=== PATIENT | male | born 1980 | race Caucasian/White ===

== ENCOUNTER 2020-02-25 19:57 | Emergency (ER) | payer BC, OTHER ==
[2020-02-25 20:03] VITALS: TEMP 97.8
[2020-02-25] MEDS ORDERED: SODIUM CHLORIDE 0.9% 500 ML 500 ML IV STA (20:24)
[2020-02-25] MEDS ORDERED: ONDANSETRON 4 MG/2 ML VIAL IVP STA (20:24)
[2020-02-25] MEDS ORDERED: KETOROLAC 15 MG/ML 1 ML VIAL IVP STA ×2 (20:24→20:59)
[2020-02-25 20:42] LABS: Appearance,Urine Clear (Clear); Bilirubin,Urine Negative (Negative); Blood,Urine Negative (Negative); Color,Urine Yellow; Glucose,Urine (UA) Negative (Negative); Ketones,Urine Negative (Negative); Leukocyte Esterase,Urine Negative (Negative); Nitrite,Urine Negative (Negative); PH, Urine 5.5 (5.0-8.0); Protein,Urine Negative (Negative); Specific Gravity,Urine 1.024 (1.001-1.035); Urobilinogen,Urine <2.0 mg/dL (<2.0)
[2020-02-25 20:49] LABS: Basophils # (A) 0.1 k/uL (0-0.2); Basophils % (A) 1 %; Eosinophils # (A) 0.1 k/uL (0-0.7); Eosinophils % (A) 1 %; HCT 40.2 % (39.0-53.0); HGB 13.9 gm/dL (13.0-17.5); Lymphocytes # (A) 2.7 k/uL (1.0-4.8); Lymphocytes % (A) 25 %; MCH 28.6 pg (25.0-35.0); MCHC 34.6 g/dL (31.0-37.0); MCV 82.7 fL (80.0-100.0); Mean Platelet Volume 7.3; Monocytes # (A) 0.7 k/uL (0-1.0); Monocytes % (A) 6 %; Neutrophils # (A) 7.1 k/uL (1.3-7.7); Neutrophils % (A) 65 %; Platelet Count 209 k/uL (150-450); RBC 4.86 m/uL (4.30-5.90); RDW 13.1 % (11.5-15.5); WBC 10.8 k/uL (3.8-10.6)
[2020-02-25 20:53] LABS: ALT 41 U/L (4-49); AST 36 U/L (17-59); African American GFR (CKD) >90 (>60 ml/min/1.73 sqM); Albumin 4.6 g/dL (3.5-5.0); Alkaline Phosphatase 73 U/L (38-126); Anion Gap 8 mmol/L; Blood Urea Nitrogen 12 mg/dL (9-20); Calcium 9.4 mg/dL (8.4-10.2); Carbon Dioxide 26 mmol/L (22-30); Chloride 105 mmol/L (98-107); Glucose 102 mg/dL (74-99); Non-African American GFR(CKD) >90 (>60 ml/min/1.73 sqM); Potassium 3.7 mmol/L (3.5-5.1); Sodium 139 mmol/L (137-145); Total Bilirubin 0.5 mg/dL (0.2-1.3); Total Protein 7.8 g/dL (6.3-8.2)
--- NOTE | 2020-02-25 21:51 | CT ---
EXAMINATION TYPE: CT abdomen pelvis wo con DATE OF EXAM: 02/25/2020 COMPARISON: None HISTORY: pain for 2 days possible kidney stones CT DLP: 630 mGycm Automated exposure control for dose reduction was used. Images obtained from the diaphragm to the floor the pelvis without contrast. The lung bases are clear. There is no pleural effusion. There is no pericardial effusion. Heart size is normal. Liver and gallbladder appear normal. Bile ducts are not dilated. Spleen is intact. There is 1 cm calc ified splenic granuloma. There is no pancreatic mass. There is no adrenal mass. Kidneys show normal size and contour. There is no hydronephrosis. The urete rs are not dilated. There is no retroperitoneal adenopathy. Appendix is posterior and appears normal. Bladder distends smoothly. There is no inguinal hernia. There is no free fluid in the pelvis. There is no sign of a pelvic mass. There is 2 mm calculus upper pole right kidney. Lumbar vertebra have normal spacing and alignment. Posterior elements are intact. Bony pelvis is inta ct. Hip joints are intact. There is no mesenteric edema. There is no ascites or free air. There is no bowel obstruction. Intestinal pattern appears normal. IMPRESSION: Nonobstructing right renal calculus. Normal appendix. No evidence of renal obstruction.
--- NOTE | 2020-02-25 22:16 | ED ---
Abdominal Pain HPI - General Chief Complaint: Abdominal Pain Stated Complaint: Flank Pain Time Seen by Provider: 02/25/20 20:06 Source: patient Mode of arrival: ambulatory Limitations: no limitations - History of Present Illness Initial Comments: Patient is a 40-year-old male presenting to emergency Department with complaints of left-sided abdominal pain that has been increasing since yesterday. He states he has been having some intermittent nausea as well. He denies history of kidney stones. He denies any vomiting, diarrhea, urinary symptoms. He describes the pain as starting at his left flank and extending around to the left side of his abdomen. He denies history of abdominal surgeries. He's been having regular bowel movements. Denies any fever, chills, chest pain, shortness of breath. He has no further complaints. Upon arrival to the ER, his vital signs are stable. - Related Data Home Medications Medication Instructions Recorded Confirmed ALPRAZolam [Xanax] 0.5 mg PO BID PRN 02/25/20 02/25/20 Citalopram Hydrobromide [CeleXA] See Taper PO DAILY 02/25/20 02/25/20 Multivitamins, Thera [Multivitamin 1 tab PO DAILY 02/25/20 02/25/20 (formulary)] Telmisartan 80 mg PO DAILY 02/25/20 02/25/20 Turmeric(Unknown Dose) 1 tab PO DAILY 02/25/20 02/25/20 Vitamin B-12(Unknown Dose) 1 tab PO DAILY 02/25/20 02/25/20 Vitamin C(Unknown Dose) 1 tab PO DAILY 02/25/20 02/25/20 Vitamin D3(Unknown Dose) 1 tab PO DAILY 02/25/20 02/25/20 Allergies Allergy/AdvReac Type Severity Reaction Status Date / Time No Known Allergies Allergy Verified 02/25/20 21:19 Review of Systems ROS Statement: Those systems with pertinent positive or pertinent negative responses have been documented in the HPI. ROS Other: All systems not noted in ROS Statement are negative. Past Medical History Past Medical History: Hypertension Additional Past Medical History / Comment(s): hemorhoids History of Any Multi-Drug Resistant Organisms: None Reported Past Surgical History: No Surgical Hx Reported Past Psychological History: Anxiety, Depression Smoking Status: Vaper Past Alcohol Use History: Rare Past Drug Use History: None Reported General Exam - General Exam Comments Initial Comments: GENERAL: Patient is well-developed and well-nourished. Patient is nontoxic and in no acute distress. HEAD: Atraumatic, normocephalic. EYES: Pupils equal round and reactive to light, extraocular movements intact, sclera anicteric, conjunctiva are normal. Eyelids were unremarkable. ENT: TMs normal, nares patent, oropharynx clear without exudates. Moist mucous membranes. NECK: Normal range of motion, supple without lymphadenopathy or JVD. LUNGS: Unlabored respirations. Breath sounds clear to auscultation bilaterally and equal. No wheezes rales or rhonchi. HEART: Regular rate and rhythm without murmurs, rubs or gallops. ABDOMEN: Very mild tenderness to the left side of the abdomen, no flank tenderness. Soft, normoactive bowel sounds. No guarding, no rebound. No masses appreciated. : Deferred MUSCULOSKELETAL: Normal extremities with adequate strength and normal range of motion, no pitting or edema. No clubbing or cyanosis. NEUROLOGICAL: Patient is alert and oriented x 3. Motor and sensory are also intact. Normal speech, normal gait. PSYCH: Normal mood, normal affect. SKIN: Warm, Dry, normal turgor, no rashes or lesions noted. Limitations: no limitations Course Vital Signs 02/25/20 20:01 Temperature 97.8 F Pulse Rate 85 Respiratory 18 Rate Blood Pressure 161/101 O2 Sat by Pulse 98 Oximetry Medical Decision Making - Medical Decision Making Patient is a 40-year-old male here for left sided abdominal pain started yesterday. His vitals are stable, afebrile. Has some very mild tenderness palpation of left side of the abdomen, no flank tenderness. Patient's labs show no acute abnormalities, lactic acid is normal, lipase is normal, urine shows no evidence of infection or hematuria. CT of the abdomen shows a 2 mm calculus in the right kidney but none in the left, there is a 1 cm calcified splenic granuloma. No other acute findings. I did discuss these findings with the p atient. He received some fluids and Toradol and does report improvement of symptoms. I discussed with patient's symptoms could be related to muscle skeletal injury, gas pains, mild colitis. I recommended increasing water intake, may continue Tylenol or Motrin for discomfort. I will give patient an GI follow-up. He is in agreement with this plan of care and he is stable for discharge. Return parameters were discussed with the patient and he verbalized understanding. Case discussed with Dr. Cowan. - Lab Data Result diagrams: 02/25/20 20:24 02/25/20 20:24 Lab Results 02/25/20 02/25/20 02/25/20 Range/Units 20:24 20:24 20:24 WBC 10.8 H (3.8-10.6) k/uL RBC 4.86 (4.30-5.90) m/uL Hgb 13.9 (13.0-17.5) gm/dL Hct 40.2 (39.0-53.0) % MCV 82.7 (80.0-100.0) fL MCH 28.6 (25.0-35.0) pg MCHC 34.6 (31.0-37.0) g/dL RDW 13.1 (11.5-15.5) % Plt Count 209 (150-450) k/uL Neutrophils % 65 % Lymphocytes % 25 % Monocytes % 6 % Eosinophils % 1 % Basophils % 1 % Neutrophils # 7.1 (1.3-7.7) k/uL Lymphocytes # 2.7 (1.0-4.8) k/uL Monocytes # 0.7 (0-1.0) k/uL Eosinophils # 0.1 (0-0.7) k/uL Basophils # 0.1 (0-0.2) k/uL Sodium 139 (137-145) mmol/L Potassium 3.7 (3.5-5.1) mmol/L Chloride 105 (98-107) mmol/L Carbon Dioxide 26 (22-30) mmol/L Anion Gap 8 mmol/L BUN 12 (9-20) mg/dL Creatinine 0.99 (0.66-1.25) mg/dL Est GFR (CKD-EPI)AfAm >90 (>60 ml/min/1.73 sqM) Est GFR (CKD-EPI)NonAf >90 (>60 ml/min/1.73 sqM) Glucose 102 H (74-99) mg/dL Plasma Lactic Acid Asim (0.7-2.0) mmol/L Calcium 9.4 (8.4-10.2) mg/dL Total Bilirubin 0.5 (0.2-1.3) mg/dL AST 36 (17-59) U/L ALT 41 (4-49) U/L Alkaline Phosphatase 73 (38-126) U/L Total Protein 7.8 (6.3-8.2) g/dL Albumin 4.6 (3.5-5.0) g/dL Lipase 100 (23-300) U/L Urine Color Yellow Urine Appearance Clear (Clear) Urine pH 5.5 (5.0-8.0) Ur Specific [place] 1.024 (1.001-1.035) Urine Protein Negative (Negative) Urine Glucose (UA) Negative (Negative) Urine Ketones Negative (Negative) Urine Blood Negative (Negative) Urine Nitrite Negative (Negative) Urine Bilirubin Negative (Negative) Urine Urobilinogen <2.0 (<2.0) mg/dL Ur Leukocyte Esterase Negative (Negative) 02/25/20 Range/Units 20:25 WBC (3.8-10.6) k/uL RBC (4.30-5.90) m/uL Hgb (13.0-17.5) gm/dL Hct (39.0-53.0) % MCV (80.0-100.0) fL MCH (25.0-35.0) pg MCHC (31.0-37.0) g/dL RDW (11.5-15.5) % Plt Count (150-450) k/uL Neutrophils % % Lymphocytes % % Monocytes % % Eosinophils % % Basophils % % Neutrophils # (1.3-7.7) k/uL Lymphocytes # (1.0-4.8) k/uL Monocytes # (0-1.0) k/uL Eosinophils # (0-0.7) k/uL Basophils # (0-0.2) k/uL Sodium (137-145) mmol/L Potassium (3.5-5.1) mmol/L Chloride (98-107) mmol/L Carbon Dioxide (22-30) mmol/L Anion Gap mmol/L BUN (9-20) mg/dL Creatinine (0.66-1.25) mg/dL Est GFR (CKD-EPI)AfAm (>60 ml/min/1.73 sqM) Est GFR (CKD-EPI)NonAf (>60 ml/min/1.73 sqM) Glucose (74-99) mg/dL Plasma Lactic Acid Asim 0.6 L (0.7-2.0) mmol/L Calcium (8.4-10.2) mg/dL Total Bilirubin (0.2-1.3) mg/dL AST (17-59) U/L ALT (4-49) U/L Alkaline Phosphatase (38-126) U/L Total Protein (6.3-8.2) g/dL Albumin (3.5-5.0) g/dL Lipase (23-300) U/L Urine Color Urine Appearance (Clear) Urine pH (5.0-8.0) Ur Specific [place] (1.001-1.035) Urine Protein (Negative) Urine Glucose (UA) (Negative) Urine Ketones (Negative) Urine Blood (Negative) Urine Nitrite (Negative) Urine Bilirubin (Negative) Urine Urobilinogen (<2.0) mg/dL Ur Leukocyte Esterase (Negative) Disposition Clinical Impression: Abdominal pain Disposition: HOME SELF-CARE Condition: Stable Instructions (If sedation given, give patient instructions): Abdominal Pain (ED) Additional Instructions: Please return to the Emergency Department if symptoms worsen or any other concerns. Continue to increase fluid intake. May take ibuprofen or Tylenol for discomfort. Follow up with PCP and/or GI specialist this as discussed. Is patient prescribed a controlled substance at d/c from ED?: No Referrals: Alec Rosales MD [Primary Care Provider] - 1-2 days Marina Brown MD [STAFF PHYSICIAN] - 1-2 days
[2020-02-25 22:28] VITALS: BP 157/105; PULSE 63; RESP 16
== END 2020-02-25 22:28 | disposition home or self-care (01) ==
LOC: EC 19:57
DX: R10.9 Unspecified abdominal pain (principal); N20.0 Calculus of kidney; D73.89 Other diseases of spleen; I10 Essential (primary) hypertension; F41.9 Anxiety disorder, unspecified; F32.9 Major depressive disorder, single episode, unspecified; F17.290 Nicotine dependence, other tobacco product, uncomplicated; Z79.899 Other long term (current) drug therapy
CPT/HCPCS: 36415; 80053; 83605; 83690; 85025; 81003; 74176; 99284; 96374; 96375; 96376; J2405; J1885

== ENCOUNTER → 2022-06-07 | Outpatient (CLI) | payer BC ==
--- NOTE | 2022-06-07 09:55 | CT ---
EXAMINATION TYPE: CT sinus wo con CT DLP: 622.30 mGycm, Automated exposure control for dose reduction was used. DATE OF EXAM: 06/07/2022 9:43 AM COMPARISON: None. CLINICAL INDICATION:Male, 42 years old with history of J32.9 CHRONIC SINUSITIS CONTRAST: None. TECHNIQUE: Multiple thin axial images were obtained through the paranasal sinuses without the use of IV contrast. Additional coronal and sagittal reformatted images were submitted for evaluation. FINDINGS: Frontal sinuses: Normally developed. Moderate left and mild right mucosal thickening. Frontal Recess: Opacified. Maxillary Sinuses: Normally developed. Moderate mucosal thickening of the bilateral maxillary sinuses with thinning of the posterior vickers. Maxillary Infundibula([facility]): Completely opacified bilaterally, No Louie cells identified. Ethmoid sinuses: Normally developed. Moderate to severe mucosal thickening. Ethmoidal notch: Protecte d and abutting the lateral lamina. Sphenoid sinuses: Normally developed. Mild to moderate mucosal thickening bilaterally. There is sella r sphenoid sinus pneumatization without evidence of dehiscence. No dehiscence of carotid canal. No e vidence of optic nerve dehiscence within the sphenoid sinus. Sphenoethmoidal recesses: Opacified. Nasal septum: Moderately deviated to the left.. Nasal Turbinates: Within normal limits. Mastoid air cells & middle ears: The air cells are clear. The middle ears are grossly unremarkable. Modified Soft tissues & Brain: Partially seen without gross abnormality. Globes are intact. Other: Cribriform plate demonstrates symmetric Keros classification type 2 cribriform plate. No evidence of bony dehiscence of skull base. Lamina papyracea is intact without evidence of remote orbital fracture or orbital prolapse into the e thmoid sinus. IMPRESSION: Moderate paranasal chronic sinus disease with opacification of the bilateral ostiomeatal complexes.
== END | disposition home or self-care (01) ==
LOC: RADCTMAIN 09:28
PROVIDERS: ATTEND Otolaryngology
DX: J32.9 Chronic sinusitis, unspecified (principal); J32.8 Other chronic sinusitis; J34.89 Other specified disorders of nose and nasal sinuses
CPT/HCPCS: 70486

== ENCOUNTER 2022-08-25 09:28 | Day surgery (SDC) | payer BC ==
[~2022-08-25 09:28] MED LIST: DEXAMETHASONE SOD PHOSPHATE 4 MG/ML 1 ML VIAL IV ONE; DEXAMETHASONE SOD PHOSPHATE 4 MG/ML 1 ML VIAL IV PRN; FAMOTIDINE 20 MG/2 ML VIAL IV PRN; LACTATED RINGERS 1,000 ML IV SCH; LIDOCAINE 1% (10MG/ML) FOR IV START INTRADERMA PRN; MIDAZOLAM 2 MG/2 ML VIAL IV PRN; ONDANSETRON 4 MG/2 ML VIAL IVP ONE; ONDANSETRON 4 MG/2 ML VIAL IVP PRN; OXYMETAZOLINE 0.05% NASL SPRAY 1 SPRAY BOTTLE EA NOSTRIL PRN
[2022-08-25] MEDS ORDERED: HYDROCORTISONE SUCCINATE 100 MG/2 ML VIAL IV ONE (10:23)
[2022-08-25] MEDS ORDERED: ROCURONIUM 10 MG/ML (5 ML VIAL) IV ONE (10:49)
[2022-08-25] MEDS ORDERED: fentaNYL (PF) 50 MCG/ML 2 ML AMP ONE (10:49)
[2022-08-25] MEDS ORDERED: MIDAZOLAM 2 MG/2 ML VIAL ONE (10:49)
[2022-08-25] MEDS ORDERED: SUCCINYLCHOLINE CHLORIDE 200 MG/10 ML VIAL IV ONE (10:49)
[2022-08-25] MEDS ORDERED: KETOROLAC 15 MG/ML 1 ML VIAL ONE (10:49)
[2022-08-25] MEDS ORDERED: diphenhydrAMINE 50 MG/ML 1 ML VIAL ONE (10:49)
[2022-08-25] MEDS ORDERED: PROPOFOL 10 MG/ML 20 ML VIAL IV ONE (10:49)
[2022-08-25] MEDS ORDERED: LIDOCAINE 2%-EPI 1:100,000 20 ML VIAL SUBMUCOSAL ONE (11:05)
--- NOTE | 2022-08-25 12:14 | P.OP ---
Date of Procedure: 08/25/22 Preoperative Diagnosis: Deviated nasal septum Inferior turbinate hypertrophy Chronic sinusitis Postoperative Diagnosis: Same Procedure(s) Performed: Septoplasty Outfracture and submucous resection of the inferior turbinates Bilateral endoscopic sinus surgery including bilateral maxillary antrostomy with removal of tissue from maxillary sinuses, bilateral anterior and posterior ethmoidectomy with sphenoidotomy and removal of tissue from the sphenoid sin uses, bilateral frontal sinusotomy with removal of tissue from the frontal sinuses and exploration of all sinuses Anesthesia: RADHAMES Surgeon: Amauri Almonte Estimated Blood Loss (ml): 25 Pathology: other (Nasal septal bone and cartilage and sinus contents) Condition: stable Disposition: PACU Indications for Procedure: Is a 43-year-old white male whose had difficulties with chronic nasal airway obstruction congestion recurrent and chronic sinusitis with CT evidence of chronic pansinusitis Operative Findings: Nasal septum deviated the right with inferior turbinate hypertrophy bilateral. Mucosal thickening throughout the maxillary ethmoid frontal and sphenoid sinuses- diffuse small polyps throughout the ethmoid air cells Description of Procedure: The patient was brought into the operative suite and placed in a supine position. The patient underwent induction of general anesthesia with oral endotracheal intubation without difficulty. The patient was prepped and draped in the usual aseptic fashion with the orbits in the operating field for monitoring to the case and the computed tomography scan was on the computer screen for review throughout the case. 1% lidocaine with 1 :100,000 epinephrine was infused submucosally into both sides of the nasal septum as well as the lateral nasal wall and anterior tips of the middle turbinates. While this was taking vasoconstrictive effect the inferior turbinates were infractured with [place] elevator and partial submucous resection of the inferior turbinates was performed with a portion of the submucosal soft tissue and the inferior turbinate bone removed with Coblation device. The inferior turbinates were then outfractured with the [place] elevator. A left hemitransfixion incision was then made with the mucoperichondrial and mucoperiosteal flap on the left elevated. The bony cartilaginous junction was disarticulated and the mucoperiosteal flap on the right was elevated. Bony nasal septal deformities were removed with Flaco forceps and an inferior cartilaginous strip was removed leaving a full 1.5 cm caudal strut. Checking intranasally this corrected the nasoseptal deformities and the hemitransfixion incision was closed with a running 4-0 chromic suture. Full 0 endoscopic examination is performed bilaterally. Beginning on the left, the middle turbinate was medialized. The maxillary ostium was located with a ballpoint probe and an infundibulotomy was performed followed by uncinectomy. The maxillary antrostomy was enlarged at the expense of the anterior and posterior fontanelle taking care anteriorly not to injure the lacrimal bone. The maxillary sinus was evaluated with 30 and 70 endoscope .[Abnormal appearing tissue was removed from the maxillary sinus]. Anterior and posterior ethmoidectomy were then performed from anterior to posterior to the level of the skull base. The roof of the anterior ethmoid air cells were then cleaned from posterior to anterior using up-biting Blakesley forceps. The frontal sinus was opened under 30 endoscopic visualization with curved suction and giraffe forceps and then explored The frontal sinus was then explored with 30 endoscope.[Abnormal tissue was removed from the frontal sinus]. The sphenoid sinus was opened with straight suction and straight Blakesley forceps and explored The sphenoid sinus was then explored with 0 endosco pe.[Abnormal tissue was removed from the sphenoid sinus]. Attention was then turned to the right where the procedures were followed as they had been on the left including medialization middle turbinate infundibulotomy uncinectomy max antrostomy with removal of tissue from maxillary sinus anterior posterior ethmoidectomy sphenoidotomy with exploration and removal of tissue and frontal sinusotomy with exploration and removal. [Nasopore nasal dressing was placed in the middle meatus bilaterally under direct visualization]. Bilateral Rodriguez airway splints coated with bacitracin ointment were placed and sutured transseptally with a 4-0 nylon suture. The patient was suctioned in oral gastric fashion and was allowed to emerge from general anesthesia having tolerated procedure well and was extubated in the operating suite and transferred to the postoperative recovery area in satisfactory condition.
[2022-08-25] MEDS: HYDROmorphone 0.5 MG/0.5 ML SYRINGE IVP PRN ×3 (12:54→13:01)
[2022-08-25] MEDS ORDERED: hydrALAZINE HCL 20 MG/ML 1 ML VIAL IVP ONE (13:10)
[2022-08-25 13:13] VITALS: TEMP 98.1
[2022-08-25 13:36] VITALS: RESP 16
[2022-08-25 14:22] VITALS: BP 156/89; PULSE 74
== END 2022-08-25 14:39 | disposition home or self-care (01) ==
LOC: OR 09:28
PROVIDERS: ATTEND Otolaryngology
DX: J34.2 Deviated nasal septum (principal); J34.3 Hypertrophy of nasal turbinates; J32.4 Chronic pansinusitis; J34.89 Other specified disorders of nose and nasal sinuses; J33.8 Other polyp of sinus; I10 Essential (primary) hypertension; Z79.52 Long term (current) use of systemic steroids; Z79.899 Other long term (current) drug therapy; F10.20 Alcohol dependence, uncomplicated; F12.90 Cannabis use, unspecified, uncomplicated; Z87.891 Personal history of nicotine dependence
CPT/HCPCS: 30520; 31259; 31276; 31267; 31240; J2250; J0330; J0360; J1200; J1720; J0690; J2405; J3010; J1885; J2704; J1170; 88300; 88305